=== PATIENT | female | born 1975 | race Two or more races ===

== ENCOUNTER → 2018-06-20 15:10 | Outpatient (CLI) | payer OTHER, SELFPAY ==
--- NOTE | 2018-06-20 | EMB_PTH ---
PATIENT: TOPHER COLES LOC: [facility] U#:[id number] AGE/SX: 50/F ROOM: RE06/20/[address]: Dr. Indio Garcia MD : 1975 BED: DIS: SPEC #: [id number] RECD: 06/21/18 13:22 STATUS: JACKY FATIMAH #: [id number] RADHA: 06/20/18 00:[address]: Indio Garcia DEPT: SURGICAL PATHOLOGY RECD BY: Miguel A Bay Tissues: Endometrium, NOS Procedures: Surgery Specimen Level IV HEADER OPERATION: Endometrial biopsy PRE-OP DIAGNOSIS: N93.9 TISSUE SUBMITTED: Endometrial biopsy MICROSCOPIC DIAGNOSIS Endometrium, biopsy: Proliferative endometrium. No evidence of hyperplasia. AM:maxwell 06/22/18 MICROSCOPIC DESCRIPTION Slides are reviewed. GROSS DESCRIPTION Received in fixative is one container labeled with the patient's name and designated endometrial biopsy. The specimen consists of multiple irregular and elongated fragments of light grace soft tissue that in aggregate measure 2 x 1 x 0.2 cm. The specimen is totally submitted in one cassette. / AM:maxwell 06/21/18 TC:5 CPT: 22076
== END ==
PROVIDERS: Visit Provider Obstetrics & Gynecology
DX: N93.9 Abnormal uterine and vaginal bleeding, unspecified (principal)
CPT/HCPCS: 88305

== ENCOUNTER → 2019-07-17 16:45 | Outpatient (CLI) | payer OTHER, SELFPAY ==
[2019-07-19 16:39] LABS: HPV Reflexed? NOT INDICATED
== END ==
PROVIDERS: Visit Provider Obstetrics & Gynecology
DX: Z12.4 Encounter for screening for malignant neoplasm of cervix (principal)
CPT/HCPCS: 87624; 88175; G0145